=== PATIENT | male | born 1990 | race Caucasian/White ===

== ENCOUNTER → 2017-12-15 | Day surgery (SDC) | payer OTHER ==
[~2017-12-15] VITALS: Ht 172.7 cm; Wt 84.4 kg
--- NOTE | 2017-12-15 15:15 | Operative Report ---
Operative/Inv Procedure Report Surgery Date: 12/15/17 Name of Procedure: bilateral radical orchiectomy: inguinal approach Pre-Operative Diagnosis: Gender dysmorphia Post-Operative Diagnosis: same Estimated Blood Loss: 50ml to 100ml Surgeon/Industrial Ecology Technician: Sanchez Valencia MD Anesthesia: laryngeal mask airway, block Specimens: bilateral testicles with cords. Complications: none Operative/Procedure Note Note: The patient was taken to the operating room, and placed on the OR table in supine position. Timeout was performed, with the patient participating, in order to confirm the patient's correct identity, planned surgery, laterality, antibiotics, and any other pertinent emerald-operative information. The patient was then anesthetized, and placed in frogleg position. The patent was then draped and prepped, in the usual surgical fashion. A 3 cm incisions were made above the internal ring, in an oblique fashion, on the right and left side. The left radical orchiectomy proceeded first. The incision was extended down through the dartos fascia, to the level of the inguinal canal roof. The roof of the inguinal canal was incised using a 15 blade knife. Blunt and sharp dissection was performed in order to expose the left inguinal cord, and the genitofemoral nerve. The nerve was gently dissected off of the cord, and placed laterally in order to protect it. The internal ring was identified along with the vas deferens on the left side. The vas deferens was clamped with 2 clamps, and incised between the 2 using Bovie cautery. 0 silk stitch was used to tie the vas deferens off the proximal cord was then bisected using Salena clamps and each segment was clamped and then transected using Bovie cautery. Both stumps were suture ligated using 0 silk suture. The left testicle was then gently extruded by inverting the scrotum into the surgical field. Once the testicle was extracted through the incision gubernaculum was then transected using Bovie cautery in order to release the testicle and cord. Once the testicle and cord were released they were sent to pathology tire area was copiously irrigated with vancomycin solution and then dried. Cauterization using Bovie cautery was performed in order to obtain good hemostasis. The proximal stump of the cord was additionally suture ligated with 2-0 vicryl. The ilioinguinal nerve was replaced into its anatomic position, in lelation to the roof of the inguinal canal was then closed using 2-0 Vicryl running stitch, also forming in the external ring once again. The incision was then closed with 2-0 chromic to reapproximate the rectus fascia. An irrigated and the skin was closed using 4-0 Monocryl subcuticular stitch. Dermabond was then placed on the skin in order to keep to seal the skin closed. Regarding the right testicle the same procedure was performed without difficulty. Again hemostasis was achieved after removing the right testicle and cord at the level of the internal ring. The vascular stumps were noted to be hemostatic, using cautery and 2-0 vicryl suture ligation bilaterally . The right genitofemoral nerve was noted be intact, and placed again in its anatomic position, of the inguinal canal prior to closure of the inguinal canal roof. All sponge, needle, and instrument count were correct at the end of the case. The patient tolerated the procedure well, and was then taken to the recovery room in satisfactory condition Findings: bilateral atrophic testicles: no mass Discharge Disposition: PACU CC: Sanchez Valencia MD
== END ==
LOC: STS 02:58 → EDSEX 07:00
DX: F64.9 Gender identity disorder, unspecified (principal); N50.0 Atrophy of testis
CPT/HCPCS: J0131; J0690; J1100; J1885; J2250; J2405